=== PATIENT | female | born 1975 | race Caucasian/White ===

== ENCOUNTER 2021-08-15 17:43 | Emergency (ER) | payer OTHER ==
[~2021-08-15] VITALS: Ht 162.6 cm; Wt 103.9 kg
[~2021-08-15 17:43] MED LIST: CYMBALTA60 MG; FLEXERIL PO; GABAPENTIN; ULTRAM 50MG TAB50 MG PO; VICTOZA0.6 MG/0.1
[2021-08-15] MEDS ORDERED: LEVO-T25 MCG PO (18:03)
[2021-08-15] MEDS ORDERED: COZAAR 25 MG TA25 M1 PO (18:04)
[2021-08-15] MEDS ORDERED: NORVASC10 MG PO (18:04)
[2021-08-15 18:17] LABS: ABSOLUTE EOSINOPHILS 0.1 thou/uL (0.0-0.7); ABSOLUTE LYMPHOCYTES 1.4 thou/uL (0.8-5.3); ABSOLUTE MONOCYTES 0.4 thou/uL (0.0-1.2); ABSOLUTE NEUTROPHILS 4.5 thou/uL (1.6-8.1); BASOPHILS 0.6 %; EOSINOPHILS 1.8 %; HEMATOCRIT 39.2 % (37.0-47.0); HEMOGLOBIN 13.2 gm/dL (12.0-15.0); LYMPHOCYTES 21.1 %; MCHC 33.8 g/dL (28.0-37.0); MCV 85.8 fL (80.0-100.0); MONOCYTES 6.7 %; MPV 6.4 fl. (7.2-11.1); NUCLEATED RBCS 0 /100WBC; PLATELET COUNT* 283 thou/uL (150-400); POLYS 69.8 %; RBC 4.57 mil/uL (4.20-5.00); RDW-CV 13.5 % (10.5-14.5); WBC 6.5 thou/uL (4.0-11.0)
[2021-08-15 18:26] LABS: CREATININE 0.9 mg/dL (0.6-1.3); POTASSIUM 3.7 mmol/L (3.5-5.1)
[2021-08-15 18:30] LABS: ALBUMIN 4.4 g/dL (3.4-5.0); TOTAL BILIRUBIN 0.4 mg/dL (<0.1-1.0)
[2021-08-15 18:47] LABS: URINE BILIRUBIN NEGATIVE (Negative); URINE BLOOD NEGATIVE (Negative); URINE CLARITY CLEAR; URINE COLOR YELLOW; URINE GLUCOSE-RANDOM NEGATIVE (Negative); URINE KETONES 2+ (Negative); URINE LEUKOCYTES-REFLEX NEGATIVE (Negative); URINE NITRITE-REFLEX NEGATIVE (Negative); URINE PROTEIN NEGATIVE (Negative); URINE SPECIFIC GRAVITY >= 1.030 (1.005-1.030); URINE UROBILINOGEN 0.2 E.U./dl (0.2-1.0)
[2021-08-15] MEDS ORDERED: FLAGYL500 M1 PO (19:35)
[2021-08-15] MEDS ORDERED: LIDOCAINE VISC100 ML TOP (19:35)
[2021-08-15] MEDS ORDERED: TRAMADOL 50 MG50 MG PO (19:35)
[2021-08-15] MEDS ORDERED: NYSTATIN 100,0015 G1 TOP (19:42)
[2021-08-15 19:48] VITALS: BP 134/86
== END 2021-08-15 19:49 | disposition home or self-care (01) ==
LOC: M.ERS 17:43
PROVIDERS: Physician Assistant
DX: N89.8 Other specified noninflammatory disorders of vagina (principal); R10.2 Pelvic and perineal pain; R30.9 Painful micturition, unspecified; E11.42 Type 2 diabetes mellitus with diabetic polyneuropathy; Z90.49 Acquired absence of other specified parts of digestive tract; Z98.890 Other specified postprocedural states; Z87.442 Personal history of urinary calculi; Z79.899 Other long term (current) drug therapy; Z88.5 Allergy status to narcotic agent; Z91.041 Radiographic dye allergy status; Z88.0 Allergy status to penicillin; Z88.2 Allergy status to sulfonamides